=== PATIENT | male | born 1975 | race Caucasian/White ===

== ENCOUNTER 2022-09-13 05:53 | Day surgery (SDC) | payer BC, SELFPAY ==
[2022-09-13] VITALS (10 sets, daily range): BP systolic 95–143; BP diastolic 55–92; PULSE 57–68; RESP 10–16; TEMP 36.3–36.6; O2SAT 95–98; BMI 31.8
[2022-09-13] MEDS: Lactated Ringers 1,000 ML 30 ML IV (06:28)
--- NOTE | 2022-09-13 07:06 | W.ANESPRE ---
General Info Date of Service Date Performed: 09/13/22 Height: 5 ft 10 in Weight: 100.6 kg Body Mass Index (BMI): 31.8 Surgical Procedure: Operation Date: 09/13/22 07:40 Proposed Procedure Side Surgeon p Elbow Excision Olecranon Bursa Right Mayo Toney MD Meds Allergies and Home Medications Allergies Allergy/AdvReac Type Severity Reaction Status Date / Time peanut Allergy Intermediate Hives Verified 09/13/22 06:11 Home Medication Medication Instructions Recorded naproxen 250 mg tablet 250 - 500 mg PO BID PRN #20 tabs 09/13/22 oxycodone 5 mg tablet 5 - 10 mg PO Q4H PRN moderate to 09/13/22 severe pain #7 tabs Current Visit Medications: Current Medications Generic Name Dose Route Start Last Admin Trade Name Freq PRN Reason Stop Dose Admin Ringer's Solution 1,000 mls @ 30 mls/hr 09/13/22 06:00 09/13/22 06:28 IV 09/13/22 16:00 30 mls/hr INFUSION JOANN Administration Cefazolin Sodium/Dextrose 2 gm in 50 mls @ 100 mls/hr 09/13/22 06:00 Ancef Duplex IVPB 09/13/22 23:59 PREOP JOANN IV Miscellaneous Supplies 1 each 09/13/22 06:00 Iv Access IV 09/13/22 23:59 DIRECTED JOANN Sodium Chloride 0 ml 09/13/22 06:00 Normal Saline Flush 10 Ml Syr IV 09/13/22 23:59 PRN PRN Sodium Chloride 0 ml 09/13/22 06:00 Normal Saline 10 Ml Vial IJ 09/13/22 23:59 DIRECTED PRN Sterile Water 0 ml 09/13/22 06:00 Water,Injection,Sterile 10 Ml Vial IJ 09/13/22 23:59 DIRECTED PRN PFSH Active Problems Active Problems: Problem Status Onset Code Olecranon bursitis of right elbow M70.21 Medical History Medical History Hypertension Surgical History Surgical History History of appendectomy History of thumb surgery Hx of LASIK Tobacco Smoking/Tobacco Use Status: Never Alcohol Alcohol Intake: current Alcohol intake frequency: holidays/special occasions only Substance Use Substance use: Never Substance use type: does not use Vital Signs and Lab Results Vital Signs Most Recent Vital Signs in EMR: Most Recent Vital Signs Temp Pulse Resp BP Pulse Ox 36.6 C 68 16 143/92 H 98 09/13/22 06:12 09/13/22 06:12 09/13/22 06:12 09/13/22 06:12 09/13/22 06:12 Lab Results Blood Type / Crossmatch: No Data to Display Complete Blood Count: No Data to Display Complete Metabolic Panel: No Data to Display Liver Function Panel: No Data to Display Coagulation Panel: No Data to Display Cardiac Panel: No Data to Display Arterial Blood Gas: No Data to Display Venous Blood Gas: No Data to Display Pancreas Panel: No Data to Display Thyroid Panel: No Data to Display Infectious Disease: No Data to Display Blood Cultures: No Data to Display Toxicology Panel: No Data to Display Anesthesia Assessment and Plan Anesthesia History Personal History: No History of Anesthesia Complications Family History: No Family History of Anesthesia Complications Exercise Tolerance Exercise Tolerance: Metabolic Equivalents>4 Pertinent Negatives Pertinent Negatives: No Symptoms of GERD, No Major Cardiovascular Symptoms or Complaints, No Major Pulmonary Symptoms or Complaints and No History of CVA/TIA Cardiac & Pulmonary Exam Cardiac Exam: Normal S1/S2 Heart Sounds Pulmonary Exam: Clear Bilateral Breath Sounds Implantable Cardiac Device Does patient have a Pacemaker or an ICD?: No Airway Exam Known Difficult Airway: No Mallampati Class: 1 Mouth Opening: Normal (> 3cm) Thyromental Distance: Greater than 3 cm Neck Range of Motion: Full ROM Neck Circumference: Normal Teeth Condition: Normal Dentition ASA Classification ASA Score: ASA 1 Emergency Case?: No NPO Status NPO Status: NPO Clears >2 hours, Solids >8 hours Anesthesia Plan Resuscitation Status: Full Code Anesthesia Technique: General Anesthesia Airway Planned: LMA Monitors Used: Standard Monitors
[2022-09-13] MEDS: ceFAZolin 2 GM/50 ML BAG IVPB (07:24)
[2022-09-13] MEDS: Bupivacaine 0.5% Pres-Free W/EPI 30 ML VIAL (07:46)
--- NOTE | 2022-09-13 08:22 | W.PM.DSUDISC ---
Date of service: 09/13/22 Time of Service: 08:21 Discharge Plan Disposition Patient Disposition: HOME Condition: Good Discharge Details Attending Provider: Mayo Toney Primary Care Provider: Unknown,Unknown Home Meds and New Rx's Prescriptions: New naproxen 250 mg tablet 250 - 500 mg PO BID PRNQty: 20 0RF Rx Instructions: take with a meal oxycodone 5 mg tablet 5 - 10 mg PO Q4H MDD 30 mg PRN (Reason: moderate to severe pain) Qty: 7 0RF Discharge Instructions Additional Instructions: Surgery: Right elbow excision olecranon bursitis Activity: Gentle use of right upper extremity until follow-up. Recommend protection and padding of the right elbow until incision is healed, maybe a few weeks. Prescriptions: Naproxen 250 mg take 1-2 every 12 hours with a meal as needed for moderate pain Oxycodone 5 mg take 1-2 every 4-6 hours as needed for severe pain You may use [id number] Tylenol (acetaminophen) as needed for mild pain. These pain medications may be taken all at once or in different combinations as needed. Also, recommend Colace (docusate) as a stool softener as surgery and pain medicine cause constipation. You may try [id number] diphenhydramine (Benadryl) 25-50 mg nightly as a sleep aid Dressings: You may loosen/adjust Jeferson wrap as needed for comfort and compression, but leave dressing in place for 3 days. May then remove and leave open to air or cover incision with Band-Aid. Leave the Steri-Strips in place until they fall off. Showers OK after 5 days. Follow-up: 10-[address] Toney You may take off the leg compression stockings this evening at home. You may also leave them on a few days longer if you have a history of leg swelling or edema. Let us know right away if you develop any redness, drainage, fevers, chest pain, or trouble breathing. Do not drink alcohol or drive for at least 24 hours after anesthesia. Please call the office during business hours with any questions or concerns. DS: Diagnosis Discharge Diagnosis (1) Olecranon bursitis of right elbow: Status: Acute
--- NOTE | 2022-09-13 08:26 | W.PM.OP ---
Date of service: 09/13/22 Time of Service: 08:26 Operative Note Operative Note DATE OF PROCEDURE: 09/13/22 PRE-OP DIAGNOSIS: Right elbow chronic symptomatic olecranon bursitis POST-OP DIAGNOSIS: same PROCEDURE: Right elbow excision olecranon bursa, CPT #22897 SURGEON: Mayo Toney [employer]INE[employer]FTSPERSON: Galina Harkins ANESTHESIA TYPE: Local By Surgeon and General LMA/ETT Refer to Anesthesia Record ESTIMATED BLOOD LOSS: 2 COMPLICATIONS: None Patient was transported to: PACU Patient's condition: stable Indications: Please see complete medical record for details. Procedure Description: In the operating room, general anesthesia was induced. The patient was positioned supine on the operating room table. All bony prominences were well-padded. Preoperative antibiotics were administered. The right elbow was prepped and draped in the usual sterile fashion. The correct patient, procedure, and side of the procedure were all verified prior to incision. The posterior elbow olecranon was readily palpable. The skin drainage site was marked. An elliptical incision was drawn out excising the thin abnormal skin drainage area and to allow reduction of redundant skin and proper alignment of skin edges for closure. The surgical site was pretty injected with 0.5% bupivacaine containing epinephrine. The skin was incised and abundant bursal fluid expressed given the thin walled and near communication of cyst to skin. Working from within the cyst the shiny garces were all abraded and excised with rasps and rongeur. Rongeur was used to remove numerous soft and firm loose bodies. Lastly the olecranon spurs were smoothed to prevent recurrence. Hemostasis was readily achieved. Surgical site was copiously irrigated normal saline. Subcutaneous tissue was closed with 2-0 Monocryl buried interrupted. Skin closed with 3-0 Monocryl buried running. Mastisol and Steri-Strips applied over the incision to reduce tension across the incision. Generous 4 x 4 padding was applied posteriorly followed by compressive Jeferson bandage. The patient awoke from anesthesia without complication and was transferred to the recovery room in a stable condition.
--- NOTE | 2022-09-13 09:44 | W.ANESPOSTOP ---
Postoperative Evaluation Date, Time and Location Date Performed: 09/13/22 Time Performed: 08:55 Patient Location: Day Surgery Unit Vital Signs Most Recent Imported Vital Signs: Most Recent Vital Signs Temp Pulse Resp BP Pulse Ox 36.3 C L 62 16 112/77 98 09/13/22 09:35 09/13/22 09:35 09/13/22 09:35 09/13/22 09:35 09/13/22 09:35 Pain Score Most Recent Pain Score: Most Recent Pain Score Pain Level 0 09/13/22 09:35 Assessment Mental Status: Awake (Alert & Oriented to Patient Baseline) Airway and Respiratory Function: Patent airway with normal (patient baseline) respiratory exam Cardiovascular Function: Hemodynamically Stable Hydration Status: Adequately Hydrated Nausea & Vomiting: No Nausea or Vomiting Pain: Pt. Denies Any Pain Peripheral Nerve Block: Patient did not receive a nerve block
== END 2022-09-13 09:50 | disposition home or self-care (01) ==
PROVIDERS: Visit Provider Student in an Organized Health Care Education/Training Program
PROC: (CPT 24105; principal; 2022-09-13 07:30)
DX: M70.21 Olecranon bursitis, right elbow (principal)
CPT/HCPCS: 24105; J0690; J1100; J1885; J2370; J2405; J2704